=== PATIENT | male | born 1950 | race Caucasian/White ===

== ENCOUNTER → 2025-03-18 07:11 | Outpatient (REF) | payer MEDICARE, SELFPAY | LOC: RAD 07:11 | PROVIDERS: ATTENDING PHYSICIAN Registered Nurse; FAMILY PHYSICIAN Family Medicine | DX: I77.1 Stricture of artery (principal); I71.40 Abdominal aortic aneurysm, without rupture, unspecified | CPT/HCPCS: 76770; 93923 ==